=== PATIENT | male | born 1995 | race Two or more races ===

== ENCOUNTER 2020-03-18 00:30 | Emergency (ER) | payer SELFPAY ==
[~2020-03-18] VITALS: Ht 172.7 cm; Wt 90.9 kg
[2020-03-18 00:34] VITALS: BP 127/68; Ht 172.7 cm; Wt 90.9 kg
[2020-03-18] MEDS ORDERED: ERYTHROMYCIN OPT1 GM RIGHT EYE (01:03)
== END 2020-03-18 01:14 | disposition home or self-care (01) ==
LOC: D.ER 00:30
DX: S05.01XA Injury of conjunctiva and corneal abrasion without foreign body, right eye, initial encounter (principal); X58.XXXA Exposure to other specified factors, initial encounter; Y93.9 Activity, unspecified; Y92.9 Unspecified place or not applicable